=== PATIENT | female | born 1985 | race Caucasian/White ===

== ENCOUNTER 2019-12-07 22:24 | Observation (INO) | payer BC ==
[~2019-12-07] VITALS: Ht 170.2 cm; Wt 99.1 kg
[2019-12-07] MEDS ORDERED: ONDANSETRON HCL INJ 2MG/ML 2ML 2 MG/ML VIAL IV STA (22:30)
[2019-12-07] MEDS ORDERED: MORPHINE SULFATE INJ 4 MG/ML INJ 1ML IV PRN (22:30)
[2019-12-07] MEDS ORDERED: FAMOTIDINE 20 MG/2 ML VIAL IV STA (22:30)
[2019-12-07] MEDS ORDERED: SODIUM CHLORIDE 0.9% 1000ML 1,000 ML IV STA (22:30)
[2019-12-07] MEDS ORDERED: DICYCLOMINE HCL 20 MG/2 ML VIAL IM ONE (22:30)
--- NOTE | 2019-12-07 22:43 | Emergency Department Note ---
History of Present Illnes History of Present Illness History of Present Illness This is a 34 year old female arrives to the ED the right upper quadrant and epigastric abdominal pain. Patient states she is scheduled for lab work and ultrasound tomorrow but could not tolerate/bear the pain any longer.. Onset (how long ago): week(s) Severity: mild Duration (how long): week(s) Timing of current episode: constant, intermittent Progression: waxing and waning Chronicity: new Past Medical/Family History Physician Review I have reviewed the patient's past medical and family history. Any updates have been documented here. Past Medical History Recent Fever: No Clinical Suspicion of Infectio: No New/Unexplained Change in Ment: No Past Medical History: None Past Surgical History: None Social History Smoking Cessation: Never Smoker Counseling Performed: No Alcohol Use: None Any Illegal Drug Use: No TB Exposure/Symptoms: No Physically hurt or threatened: No Family History Family history of heart diseas: No Review of Systems Review of Systems Constitutional: Reports no symptoms EENTM: Reports no symptoms Cardiovascular: Reports no symptoms Respiratory: Reports no symptoms Gastrointestinal: Reports as per HPI, Reports abdominal pain Genitourinary: Reports no symptoms Musculoskeletal: Reports no symptoms Integumentary: Reports no symptoms Neurological: Reports no symptoms Psychological: Reports no symptoms Endocrine: Reports no symptoms Hematological/Lymphatic: Reports no symptoms Physical Exam Related Data Allergies: Coded Allergies: No Known Allergies (Unverified , 12/07/19) Vital signs reviewed: Yes Physical Exam CONSTITUTIONAL Constitutional: Present well-developed, Present well-nourished HENT HENT: Present normocephalic, Present atraumatic, Present oropharynx clear/moist, Present nose normal HENT L/R: Present left ext ear normal, Present right ext ear normal EYES Eyes: Reports PERRL, Reports conjunctivae normal NECK Neck: Present ROM normal PULMONARY Pulmonary: Present effort normal, Present breath sounds normal CARDIOVASCULAR Cardiovascular: Present regular rhythm, Present heart sounds normal, Present capillary refill normal, Present normal rate GASTROINTESTINAL Abdominal: Present soft, Present bowel sounds normal, Present tender GENITOURINARY Genitourinary: Present exam deferred SKIN Skin: Present warm, Present dry MUSCULOSKELETAL Musculoskeletal: Present ROM normal NEUROLOGICAL Neurological: Present alert, Present oriented x 3, Present no gross motor or sensory deficits PSYCHOLOGICAL Psychological: Present mood/affect normal, Present judgement normal Results Laboratory Lab results reviewed: Yes Laboratory comments Laboratory Tests Test 12/07/19 22:37 White Blood Count 10.50 x10e3/uL (4.8-10.8) Red Blood Count 4.52 x10e6/uL (3.6-5.1) Hemoglobin 13.0 g/dL (12.0-16.0) Hematocrit 39.6 % (34.2-44.1) Mean Corpuscular Volume 87.6 fL (81-99) Mean Corpuscular Hemoglobin 28.8 pg (28-32) Mean Corpuscular Hemoglobin Concent 32.8 g/dL (31-35) Red Cell Distribution Width 12.9 % (11.7-14.4) Platelet Count 275 x10e3/uL (140-360) Neutrophils (%) (Auto) 56.6 % (38.7-80.0) Lymphocytes (%) (Auto) 32.2 % (18.0-39.1) Monocytes (%) (Auto) 7.3 % (4.4-11.3) Eosinophils (%) (Auto) 3.2 % (0.0-6.0) Basophils (%) (Auto) 0.4 % (0.0-1.0) Neutrophils # (Auto) 5.9 (2.1-6.9) Lymphocytes # (Auto) 3.4 (1.0-3.2) Monocytes # (Auto) 0.8 (0.2-0.8) Eosinophils # (Auto) 0.3 (0.0-0.4) Basophils # (Auto) 0.0 (0.0-0.1) Absolute Immature Granulocyte (auto 0.03 x10e3/uL (0-0.1) Urine Color Yellow (YELLOW) Urine Clarity Clear (CLEAR) Urine pH 6 (5 - 7) Urine Specific [place] 1.025 (1.010-1.025) Urine Protein Negative (NEGATIVE) Urine Glucose (UA) Negative (NEGATIVE) Urine Ketones Negative (NEGATIVE) Urine Blood Trace (NEGATIVE) Urine Nitrite Negative (NEGATIVE) Urine Bilirubin Negative (NEGATIVE) Urine Urobilinogen 0.2 mg/dL (0.2 - 1) Urine Leukocyte Esterase Small (NEGATIVE) Urine RBC 0-5 /HPF (0-5) Urine WBC 6-10 /HPF (0-5) Urine Epithelial Cells Moderate /LPF (NONE) Urine Bacteria Few /HPF (NONE) Urine Test Negative (NEGATIVE) Sodium Level 140 mmol/L (136-145) Potassium Level 4.0 mmol/L (3.5-5.1) Chloride Level 105 mmol/L (98-107) Carbon Dioxide Level 25 mmol/L (22-29) Anion Gap 14.0 mmol/L (8-16) Blood Urea Nitrogen 10 mg/dL (7-26) Creatinine 0.78 mg/dL (0.57-1.11) Estimat Glomerular Filtration Rate > 60 ML/MIN (60-) BUN/Creatinine Ratio 13 (6-25) Glucose Level 112 mg/dL (74-118) Calcium Level 9.8 mg/dL (8.4-10.2) Total Bilirubin 0.6 mg/dL (0.2-1.2) Aspartate Amino Transf (AST/SGOT) 16 IU/L (5-34) Alanine Aminotransferase (ALT/SGPT) 21 IU/L (0-55) Alkaline Phosphatase 63 IU/L (40-150) Creatine Kinase 92 IU/L (29-168) Creatine Kinase MB 0.80 ng/mL (0-5.0) Troponin I < 0.001 ng/mL (0-0.300) Total Protein 7.7 g/dL (6.5-8.1) Albumin 4.4 g/dL (3.5-5.0) Globulin 3.3 g/dL (2.3-3.5) Albumin/Globulin Ratio 1.3 (0.8-2.0) Lipase 25 U/L (8-78) Urine Opiates Screen Negative (NEGATIVE) Urine Methadone Screen Negative (NEGATIVE) Urine Barbiturates Screen Negative (NEGATIVE) Urine Phencyclidine Screen Negative (NEGATIVE) Urine Amphetamines Screen Negative (NEGATIVE) Urine Methamphetamines Screen Negative (NEGATIVE) Urine Benzodiazepines Screen Negative (NEGATIVE) Urine Cocaine Screen Negative (NEGATIVE) Urine Cannabinoids Screen Negative (NEGATIVE) Imaging Imaging results reviewed: Yes Impressions IMPRESSION: 1. Cholelithiasis, distended gallbladder, and mild wall thickening, concerning for acute cholecystitis in this patient with right upper quadrant pain. 2. Subcentimeter nonobstructive right renal calculus. Signed by: Dr. Cuba Louis MD on 12/07/2019 11:55 PM Assessment & Plan Medical Decision Making MDM 34-year-old female arrives to the ED with epigastric and right upper quadrant abdominal pain. Patient's labwork unremarkable. Patient's CT findings consistent with acute cholecystitis. Patient's pain was well controlled, she was given a dose of IV antibiotics and admitted for further workup and management. Dr. Alexsi was consult. Assessment & Plan Final Impression: (1) Acute cholecystitis Depart Disposition: ADMITTED Medications in the ED Sodium Chloride 1,000 ml @ 0 mls/hr Q0M STAT IV ; Start 12/07/19 at 22:30; Stop 12/07/19 at 22:31 Morphine Sulfate 4 mg ONCE PRN IV SEVERE PAIN (7-10); Start 12/07/19 at 22:30; Stop 12/14/19 at 22:29; Status UNV Ondansetron HCl 4 mg NOW STAT IV ; Start 12/07/19 at 22:30; Stop 12/07/19 at 22:31; Status UNV Famotidine 20 mg NOW STAT IV ; Start 12/07/19 at 22:30; Stop 12/07/19 at 22:31; Status UNV Dicyclomine HCl 20 mg ONCE ONCE IM ; Start 12/07/19 at 22:30; Stop 12/07/19 at 22:31 BENITA ROMAN, Dec 07, 2019 22:42
[2019-12-07 22:54] LABS: BASOPHILS % 0.4 % (0.0-1.0); EOSINOPHILS # (AUTO) 0.3 (0.0-0.4); EOSINOPHILS % 3.2 % (0.0-6.0); HEMATOCRIT 39.6 % (34.2-44.1); LYMPHOCYTES # (AUTO) 3.4 (1.0-3.2); LYMPHOCYTES % 32.2 % (18.0-39.1); MEAN CORPUSCULAR HEMOGLOBIN 28.8 pg (28-32); MEAN CORPUSCULAR HGB CONC 32.8 g/dL (31-35); MEAN CORPUSCULAR VOLUME 87.6 fL (81-99); MONOCYTES # (AUTO) 0.8 (0.2-0.8); MONOCYTES % 7.3 % (4.4-11.3); NEUTROPHILS # (AUTO) 5.9 (2.1-6.9); NEUTROPHILS % 56.6 % (38.7-80.0); PLATELET COUNT 275 x10e3/uL (140-360); RED BLOOD COUNT 4.52 x10e6/uL (3.6-5.1); RED CELL DISTRIBUTION WIDTH 12.9 % (11.7-14.4)
[2019-12-07 22:56] LABS: AMPHETAMINES SCREEN,URINE NEGATIVE (NEGATIVE); BENZODIAZEPINES SCREEN,URINE NEGATIVE (NEGATIVE); BILIRUBIN,URINE NEGATIVE (NEGATIVE); CLARITY,URINE CLEAR (CLEAR); COLOR,URINE YELLOW (YELLOW); KETONES,URINE NEGATIVE (NEGATIVE); LEUKOCYTE ESTERASE ,URINE SMALL (NEGATIVE); NITRITE,URINE NEGATIVE (NEGATIVE); PHENCYCLIDINE SCREEN,URINE NEGATIVE (NEGATIVE); PROTEIN,URINE DIPSTICK NEGATIVE (NEGATIVE); URINE UROBILINOGEN 0.2 mg/dL (0.2 - 1)
[2019-12-07 22:57] LABS: PREGNANCY TEST, URINE NEGATIVE (NEGATIVE)
[2019-12-07 23:02] LABS: BACTERIA,URINE FEW /HPF; EPITHELIAL CELLS,URINE MODERATE /LPF; RBC,URINE 0-5 /HPF (0-5)
[2019-12-07 23:10] LABS: ALANINE AMINOTRANSFERASE 21 IU/L (0-55); ALBUMIN 4.4 g/dL (3.5-5.0); ALBUMIN/GLOBULIN RATIO 1.3 (0.8-2.0); ALKALINE PHOSPHATASE 63 IU/L (40-150); BLOOD UREA NITROGEN 10 mg/dL (7-26); BUN/CREATININE RATIO 13 (6-25); CALCIUM 9.8 mg/dL (8.4-10.2); CARBON DIOXIDE 25 mmol/L (22-29); CHLORIDE 105 mmol/L (98-107); CREATINE KINASE 92 IU/L (29-168); CREATININE, SERUM 0.78 mg/dL (0.57-1.11); EST GLOMERULAR FILTRATION RATE > 60 ML/MIN (60-); GLUCOSE 112 mg/dL (74-118); SODIUM 140 mmol/L (136-145)
[2019-12-07] MEDS ORDERED: SODIUM CHLORIDE 0.9% 50ML 50 ML ONE (23:25)
[2019-12-07] MEDS ORDERED: IOPAMIDOL 370 MG/ML 200 ML INFUS..BTL INJ ONE (23:26)
--- NOTE | 2019-12-07 23:59 | Diagnostic Imaging Report ---
EXAM: CT Abdomen and Pelvis WITH contrast INDICATION: ^Y ^RUQ PAIN ^20191207 ^2330 COMPARISON: None. TECHNIQUE: Abdomen and pelvis were scanned utilizing a multidetector helical scanner from the lung base to the pubic symphysis after administration of IV contrast. Coronal and sagittal reformations were obtained. Dose modulation, iterative reconstruction, and/or weight based adjustment of the mA/kV was utilized to reduce the radiation dose to as low as reasonably achievable. Routine protocol was performed. Scan was performed when during portal venous phase. IV CONTRAST: 100 mL of Isovue-370 ORAL CONTRAST: Water COMPLICATIONS: None RADIATION DOSE: Total DLP: 395.35 mGy*cm Estimated effective dose: (DLP x 0.015 x size factor) mSv CTDIvol has been reviewed. It is below the limits set by the Radiation Protocol Committee (RPC). FINDINGS: LINES and TUBES: None. LOWER THORAX: Unremarkable HEPATOBILIARY: No focal hepatic lesions. No biliary ductal dilation. GALLBLADDER: Distended gallbladder, containing a gallstone in the neck area. Mild wall thickening. SPLEEN: No splenomegaly. PANCREAS: No focal masses or ductal dilatation. ADRENALS: No adrenal nodules KIDNEYS/URETERS: Kidneys enhance symmetrically. No hydronephrosis. No cystic or solid mass lesions. 3 mm right renal superior pole calculus. GI TRACT: No abnormal distention, wall thickening, or evidence of bowel obstruction. Appendix is normal. Hyperdense ingested material within stomach and small bowel. PELVIC ORGANS/BLADDER: Unremarkable. Retroverted uterus. LYMPH NODES: No lymphadenopathy. VESSELS: Unremarkable. PERITONEUM / RETROPERITONEUM: No free air or fluid. BONES: Scattered sclerotic foci, the largest in right femoral head, likely bone islands. SOFT TISSUES: Unremarkable. IMPRESSION: 1. Cholelithiasis, distended gallbladder, and mild wall thickening, concerning for acute cholecystitis in this patient with right upper quadrant pain. 2. Subcentimeter nonobstructive right renal calculus. Signed by: Dr. Cuba Louis MD on 12/07/2019 11:55 PM
[2019-12-08] VITALS (7 sets, daily range): BP systolic 105–134; BP diastolic 60–92
[2019-12-08] MEDS ORDERED: DEXTROSE 5%/0.45% SOD CHL 1,000 ML IV STA (00:01)
[2019-12-08] MEDS ORDERED: CEFTRIAXONE SOD 1 GM/NS 50 ML 50 ML IV ONE (00:15)
--- OUTSIDE RECORDS SUMMARY | 2019-12-08 01:21 | XMS REPORT | Continuity of Care Document ---
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 Allergies, Adverse Reactions, Alerts This patient has no known allergies or adverse reactions. Medications This patient has no known medications. Procedures This patient has no known procedures. Results Test Description Test Time Test Comments Results Result Comments Source CT ABDOMEN/PELVIS W 2019-12-07 23:48:00 [facility] [address] [place] [address] Patient Name: SOFI WHITMAN MR #: [id number] : 1985 Age/Sex: 34/F Req #: [id number] Adm Physician: Ordered by: BENITA ROMAN DO Report #: [id number] Location: ER Room/Bed: Procedure: [id number] CT/CT ABDOMEN/PELVIS W Exam Date: 12/07/19 Exam Time: 2329 REPORT STATUS: Signed EXAM: CT Abdomen and Pelvis WITH contrast INDICATION: Y RUQ PAIN 20191207 COMPARISON: None. TECHNIQUE: Abdomen and pelvis were scanned utilizing a multidetector helical scanner from the lung base to the pubic symphysis after administration of IV contrast. Coronal and sagittal reformations were obtained. Dose modulation, iterative reconstruction, and/or weight based adjustment of the mA/kV was utilized to reduce the radiation dose to as low as reasonably achievable. Routine protocol was performed. Scan was performed when during portal venous phase. IV CONTRAST: 100 mL of Isovue-370 ORAL CONTRAST: Water COMPLICATIONS: None RADIATION DOSE: Total DLP: 395.35 mGy*cm Estimated effective dose: (DLP x 0.015 x size factor) mSv CTDIvol has been reviewed. It is below the limits set by the Radiation Protocol Committee (RPC). FINDINGS: LINES and TUBES: None. LOWER THORAX: Unremarkable HEPATOBILIARY: No focal hepatic lesions. No biliary ductal dilation. GALLBLADDER: Distended gallbladder, containing a gallstone in the neck area. Mild wall thickening. SPLEEN: No splenomegaly. PANCREAS: No focal masses or ductal dilatation. ADRENALS: No adrenal nodules KIDNEYS/URETERS: Kidneys enhance symmetrically. No hydronephrosis. No cystic or solid mass lesions. 3 mm right renal superior pole calculus. GI TRACT: No abnormal distention, wall thickening, or evidence of bowel obstruction. Appendix is normal. Hyperdense ingested material within stomach and small bowel. PELVIC ORGANS/BLADDER: Unremarkable. Retroverted uterus. LYMPH NODES: No lymphadenopathy. VESSELS: Unremarkable. PERITONEUM / RETROPERITONEUM: No free air or fluid. BONES: Scattered sclerotic foci, the largest in right femoral head, likely bone islands. SOFT TISSUES: Unremarkable. IMPRESSION: 1. Cholelithiasis, distended gallbladder, and mild wall thickening, concerning for acute cholecystitis in this patient with right upper quadrant pain. 2. Subcentimeter nonobstructive right renal calculus. Signed by: Dr. Cuba Durham MD on 12/07/2019 11:55 PM Dictated By: BERNIE DURHAM MD 54 Transcribed By: CHASITY on 12/07/19 5962 COPY TO: BENITA ROMAN DO
--- OUTSIDE RECORDS SUMMARY | 2019-12-08 01:25 | XMS REPORT | Continuity of Care Document ---
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 Allergies, Adverse Reactions, Alerts This patient has no known allergies or adverse reactions. Medications This patient has no known medications. Procedures This patient has no known procedures. Results Test Description Test Time Test Comments Results Result Comments Source CT ABDOMEN/PELVIS W 2019-12-07 23:48:00 [facility] [address] [place] [address] Patient Name: SOFI WHITMAN MR #: [id number] : 1985 Age/Sex: 34/F Req #: [id number] Adm Physician: Ordered by: BENITA ROMAN DO Report #: [id number] Location: ER Room/Bed: Procedure: [id number] CT/CT ABDOMEN/PELVIS W Exam Date: 12/07/19 Exam [...] MD 54 Transcribed By: CHASITY on 12/07/19 3004 COPY TO: BENITA ROMAN DO
[2019-12-08] MEDS: MORPHINE SULFATE INJ 4 MG/ML INJ 1ML IV PRN ×4 (02:58→20:30)
[2019-12-08] MEDS: ONDANSETRON HCL INJ 2MG/ML 2ML 2 MG/ML VIAL IV PRN ×3 (02:58→17:23)
--- NOTE | 2019-12-08 04:24 | NUR ---
pt is in bed at this time, pending room assignment, pt is aaox4, no distress noted,vital signs WNL
[2019-12-08] MEDS ORDERED: PRILOSEC OTC20 MG PO (06:29)
--- NOTE | 2019-12-08 06:58 | NUR ---
Report given to oncoming nurse. Patient to be transferred to room after shift change.
--- NOTE | 2019-12-08 07:01 | NUR ---
Report to ZAIDA Diallo
[2019-12-08] MEDS: HYDROMORPHONE 1MG/1ML INJ IV PRN ×2 (08:20→17:23)
--- NOTE | 2019-12-08 09:32 | Consultation ---
DATE OF CONSULTATION: 12/08/2019 CHIEF COMPLAINT: Abdominal pain. HISTORY OF PRESENT ILLNESS: The patient is a 34-year-old female with complaints of recurrent epigastric right upper quadrant abdominal pain radiating to the back with nausea recurring at nighttime with no vomiting or diarrhea. The patient has had four attacks since October 29. No definite fatty food intolerance. PAST MEDICAL HISTORY: Unremarkable. ALLERGIES: NO DRUG ALLERGY. SOCIAL HABITS: No smoking or alcohol abuse. REVIEW OF SYSTEMS: No chest pain, shortness of breath, cough, or fevers. PHYSICAL EXAMINATION: VITAL SIGNS: Stable, afebrile. GENERAL: The patient is awake, alert, in moderate discomfort. HEENT: Sclerae nonicteric. NECK: Supple. LUNGS: Clear. HEART: Regular rate and rhythm. ABDOMEN: Soft with some guarding and tenderness in epigastrium and right upper quadrant without rebound. LABORATORY DATA: White cell count is 10.5, hemoglobin of 13, and creatinine 0.8. Liver function tests within normal limits. CT of the abdomen showed distended gallbladder with mild wall thickening. No mentioning of gallstones. ASSESSMENT: Gallbladder distention on CT related with abdominal pain, could be cholecystitis. PLAN: HIDA scan to confirm cholecystitis before cholecystectomy. Pradip Alexis MD DNL/MODL /[id number]
[2019-12-08] MEDS ORDERED: KETOROLAC TROMETHAMINE 30 MG/ML VIAL IV PRN (12:00)
[2019-12-08] MEDS ORDERED: KETOROLAC TROMETHAMINE 30 MG/ML VIAL IV STA (14:20)
[2019-12-08] MEDS ORDERED: SODIUM CHLORIDE 0.9% 1000ML 1,000 ML ONE (16:36)
[2019-12-08] MEDS: PIPER-TAZ 3.375 GM 50 ML IV SCH (17:26)
--- NOTE | 2019-12-08 18:57 | Diagnostic Imaging Report ---
HIDA Scan with Morphine Challenge Reason for exam: Acute cholecystitis Report: Following the administration of 6.4 of Tc-99m mebrofenin, dynamic images of the abdomen in the anterior projection were obtained through 60 minutes. Morphine sulfate 4 mg was administered via slow IV push and additional images were obtained through 30 minutes. Perfusion to the liver is normal. Extraction of tracer by the liver parenchyma is normal. Tracer appears promptly within the biliary tract. Tracer is seen within the small bowel by 32 minutes. The gallbladder does not fill during the initial 60 minutes of dynamic imaging. Following administration of morphine, the gallbladder also does not fill. Impression: Absence of filling of the gallbladder, even following administration of morphine, is compatible with the diagnosis of acute cystic duct obstruction/acute cholecystitis. Signed by: Dr. Perlita Whitney M.D. on 12/08/2019 6:53 PM
--- NOTE | 2019-12-08 22:20 | NUR ---
HYDROMORPHONE 1 MG IVP ADMINISTERED FOR PAIN LEVEL OF 8 IN THE ABDOMEN.
[2019-12-09] VITALS (11 sets, daily range): BP systolic 100–123; BP diastolic 68–86
[2019-12-09] MEDS: DEXTROSE 5%/0.9% SOD CHL 1,000 ML IV SCH ×2 (00:41→11:50)
[2019-12-09] MEDS: PIPER-TAZ 3.375 GM 50 ML IV SCH ×5 (00:41→23:55)
--- NOTE | 2019-12-09 01:03 | History and Physical ---
CHIEF COMPLAINT: Right upper quadrant abdominal pain. HISTORY OF PRESENT ILLNESS: The patient was seen and evaluated at approximately 1:00 p.m., this afternoon. The patient was in the process of getting a HIDA scan. This is a 34-year-old female, who came in last night with complaints of right upper quadrant abdominal pain, that has been ongoing for the last several days. The patient went to her primary care physician, had some lab work and had an ultrasound scheduled, but due to the pain, came to the ED for further evaluation and management. She denies any fever at home. No recent sickness, cough, or congestion. The patient reports that she had some epigastric abdominal pain as well. She has had four attacks since October 29. The patient was seen and evaluated at bedside on the medical floor. She is currently doing well with no other issues at this time. REVIEW OF SYSTEMS: Pertinent positives: Right upper quadrant abdominal pain, decreased oral intake. The rest of 14-point review of systems have been reviewed with the patient and are negative. ALLERGIES: NO KNOWN DRUG ALLERGIES. HOME MEDICATIONS: Omeprazole. PAST MEDICAL HISTORY: None. PAST SURGICAL HISTORY: None. FAMILY HISTORY: Hypertension and diabetes. SOCIAL HISTORY: No drugs, no alcohol, does not smoke. Good social support. PHYSICAL EXAMINATION: VITAL SIGNS: Temperature was 98, pulse 70, respiratory rate 17, blood pressure 120/85, pulse ox 100% on room air. GENERAL: Not in acute distress. Alert and oriented x3. Cooperative on examination. HEENT: Head normocephalic, atraumatic. Eyes; pupils are pupils are equal, round, and reactive to the light bilaterally. Extraocular movements are intact bilaterally. Throat, no evidence of any erythema or exudate in the posterior pharynx. Has poor dentition. NECK: Supple. Good range of motion. PULMONARY: Clear to auscultation bilaterally. No wheezing, rales, or rhonchi. No crackles appreciated. CARDIOVASCULAR: Positive S1, S2. No murmurs or gallops appreciated. ABDOMEN: She has tender to palpation in the right upper quadrant. Bowel sounds were present. MUSCULOSKELETAL: Strength is 5/5 throughout. SKIN: Intact. Warm to touch. Good cap refill. PSYCHIATRIC: Normal affect and mood. EXTREMITIES: No edema. Good range of motion throughout. LABORATORY FINDINGS: Show white count 10.5, hemoglobin 13, hematocrit 39.6, platelets of 275. Chemistry; sodium 140, potassium 4, chloride 105, bicarb 25, anion gap of 14, BUN is 10 and creatinine is 0.78, glucose is 112, calcium is 9.8, total bilirubin was 0.6, AST 16, ALT 21, alkaline phosphatase 63. CK 92. Troponins were negative. Total protein 7.7, albumin 4.4, lipase was 25. Urinalysis, 6-10 WBCs with small leukocyte esterase, negative for nitrite. Urine drug screen was negative. Serology; coronavirus was pending. IMAGING STUDIES: CT abdomen and pelvis shows cholelithiasis, distended gallbladder with mild wall thickening concerning for acute cholecystitis in this patient with right upper quadrant pain. Subcentimeter nonobstructing right renal calculus. HIDA scan performed shows absence of filling of the gallbladder even following administration of morphine is compatible with diagnosis acute cystic duct obstruction, acute cholecystitis. IMPRESSION: 1. Abdominal pain concerning for acute cholecystitis. 2. Nausea/vomiting. 3. Dehydration. PLAN: At this time, HIDA scan noted to be acute cholecystitis, which was ordered by General Surgery. General surgery has been consulted. IV Toradol and IV pain medication with morphine p.r.n. she is currently n.p.o. We will continue with IV fluids for now. Continue with IV antibiotics and pain control. SCDs for DVT prophylaxis. Likely will need surgery tomorrow. Plan of care discussed with nursing staff. MD ELSA Jennings/JADYN /[id number]
[2019-12-09] MEDS: MORPHINE SULFATE INJ 4 MG/ML INJ 1ML IV PRN ×3 (01:40→19:08)
[2019-12-09 06:18] LABS: BASOPHILS % 0.2 % (0.0-1.0); EOSINOPHILS # (AUTO) 0.1 (0.0-0.4); EOSINOPHILS % 0.7 % (0.0-6.0); HEMATOCRIT 34.6 % (34.2-44.1); LYMPHOCYTES # (AUTO) 1.2 (1.0-3.2); LYMPHOCYTES % 8.9 % (18.0-39.1); MEAN CORPUSCULAR HEMOGLOBIN 31.9 pg (28-32); MEAN CORPUSCULAR HGB CONC 34.7 g/dL (31-35); MONOCYTES # (AUTO) 1.7 (0.2-0.8); NEUTROPHILS % 76.9 % (38.7-80.0); PLATELET COUNT 181 x10e3/uL (140-360); RED BLOOD COUNT 3.76 x10e6/uL (3.6-5.1); RED CELL DISTRIBUTION WIDTH 13.7 % (11.7-14.4)
[2019-12-09 06:33] LABS: ALANINE AMINOTRANSFERASE 71 IU/L (0-55); ALBUMIN 3.5 g/dL (3.5-5.0); ALBUMIN/GLOBULIN RATIO 1.2 (0.8-2.0); ALKALINE PHOSPHATASE 64 IU/L (40-150); ANION GAP 11.8 mmol/L (8-16); BLOOD UREA NITROGEN < 5 mg/dL (7-26); CALCIUM 8.3 mg/dL (8.4-10.2); CARBON DIOXIDE 25 mmol/L (22-29); CHLORIDE 104 mmol/L (98-107); CREATININE, SERUM 0.65 mg/dL (0.57-1.11); EST GLOMERULAR FILTRATION RATE > 60 ML/MIN (60-); GLUCOSE 133 mg/dL (74-118); POTASSIUM 3.8 mmol/L (3.5-5.1); SODIUM 137 mmol/L (136-145)
[2019-12-09 06:35] LABS: BUN/CREATININE RATIO 8 (6-25)
--- NOTE | 2019-12-09 08:00 | NUR ---
at bedside. OR taking her down for procedure
[2019-12-09] MEDS ORDERED: BUPIVACAINE HCL 0.5% INJ 30 ML VIAL INJ ONE (08:01)
[2019-12-09] MEDS ORDERED: ACETAMINOPHEN 1000 MG/100 ML 100 ML IV ONE (09:07)
[2019-12-09] MEDS ORDERED: KETOROLAC TROMETHAMINE 30 MG/ML VIAL ONE (10:05)
--- NOTE | 2019-12-09 10:38 | NUR ---
Patient villela from OR. In stable condition. Awake and alert and lorin discomfort. IV fluids infusing, refused PO intake except ice chips at this time
--- NOTE | 2019-12-09 11:00 | NUR ---
ABD soft and 4 trochanter sites with glue intact and no bleeding. Active bowel sounds. Pt awake and alert and pleasant. No complaints at this time
--- NOTE | 2019-12-09 12:57 | NUR ---
Taught patient about post surgical diet and precautions, pain management, splinting cough and deep breathing/pulmonary toilet, pain management, post op course, dietary modifications, and post surgical hopital stay length.
--- NOTE | 2019-12-09 19:08 | NUR ---
Patient visited in room during nursing rounds. Patient alert and oriented x3. Ambulatory in room prn. S/P Lap Cholecystectomy today with 4 trocar sites sealed with derma barclay. Patient has intermittent aching pain to surgical sites on abdomen but otherwise patient feels better. Call [place] within reach. Will monitor pt closely.
[2019-12-09] MEDS: ONDANSETRON HCL INJ 2MG/ML 2ML 2 MG/ML VIAL IV PRN (19:25)
--- NOTE | 2019-12-09 19:42 | NUR ---
Patient requested to advance diet and felt she was ready. Diet order was changed from clear liquid to full liquid diet.
[2019-12-10] VITALS: BP 106/68
--- NOTE | 2019-12-10 00:47 | Progress Note ---
DATE: 12/09/2019 Medicine Progress Note SUBJECTIVE: The patient underwent laparoscopic cholecystectomy. She is stating she is feeling much better. Pain is well controlled. PHYSICAL EXAMINATION: VITAL SIGNS: Temperature is 98, pulse is 98, respiratory rate 16, blood pressure 112/69, pulse ox 99% on room air. GENERAL: Not in acute distress. Alert and oriented x3. Cooperative on examination. PULMONARY: Clear to auscultation bilaterally. No wheezing, rales, or rhonchi. No crackles appreciated. CARDIOVASCULAR: Positive S1, S2. No murmurs, rubs, or gallops appreciated. ABDOMEN: Soft, nondistended, and nontender to palpation. Bowel sounds present. MUSCULOSKELETAL: Strength 5/5 throughout. No evidence of any muscle deficits on examination. SKIN: Intact. Warm to touch. Good cap refill. PSYCHIATRIC: Normal affect and mood. EXTREMITIES: No edema. Good range of motion throughout. LABORATORY DATA: Labs show white count was 12. The rest of the CBCs are stable. Chemistries reviewed, stable. IMAGING STUDIES: Nothing new. IMPRESSION: 1. Acute cholecystitis, status post laparoscopic cholecystectomy. 2. Nausea/vomiting-resolved. 3. Dehydration-resolved. PLAN: At this time, the patient underwent status post laparoscopic cholecystectomy. She is on a regular diet. She is doing very well. Continue with pain control. Potential discharge tomorrow. Get a.m. labs. MD ELSA Jennings/SHARYNL /[id number]
[2019-12-10] MEDS: DEXTROSE 5%/0.9% SOD CHL 1,000 ML IV SCH (01:40)
[2019-12-10] MEDS: ONDANSETRON HCL INJ 2MG/ML 2ML 2 MG/ML VIAL IV PRN (03:40)
[2019-12-10] MEDS: MORPHINE SULFATE INJ 4 MG/ML INJ 1ML IV PRN (03:40)
[2019-12-10 04:00] VITALS: BP 106/60
[2019-12-10] MEDS: PIPER-TAZ 3.375 GM 50 ML IV SCH ×2 (06:16→12:00)
--- NOTE | 2019-12-10 07:00 | NUR ---
BEDSIDE SHIFT REPORT RECEIVED FROM THE PREMIX OPERATOR CONCENTRATE RN. EDUCATED PT ABOUT FALL PRECAUTIONS. PT VERBALIZED UNDERSTANDING. CALL LIGHT WITH IN EASY REACH. BED IS LOW AND LOCKED. SIDE RAILS X2. ALL SAFETY MEASURES IN PLACE. PT DENIES NEEDS AT THIS TIME.
[2019-12-10 08:00] VITALS: BP 106/66
[2019-12-10 08:50] VITALS: BP 106/66
[2019-12-10 10:36] LABS: BASOPHILS % 0.2 % (0.0-1.0); EOSINOPHILS # (AUTO) 0.1 (0.0-0.4); EOSINOPHILS % 1.6 % (0.0-6.0); HEMATOCRIT 31.2 % (34.2-44.1); HEMOGLOBIN 10.2 g/dL (12.0-16.0); LYMPHOCYTES # (AUTO) 2.1 (1.0-3.2); LYMPHOCYTES % 25.8 % (18.0-39.1); MEAN CORPUSCULAR HEMOGLOBIN 29.1 pg (28-32); MEAN CORPUSCULAR HGB CONC 32.7 g/dL (31-35); MEAN CORPUSCULAR VOLUME 88.9 fL (81-99); MONOCYTES % 12.1 % (4.4-11.3); NEUTROPHILS # (AUTO) 4.9 (2.1-6.9); NEUTROPHILS % 60.1 % (38.7-80.0); PLATELET COUNT 184 x10e3/uL (140-360); RED BLOOD COUNT 3.51 x10e6/uL (3.6-5.1); RED CELL DISTRIBUTION WIDTH 13.3 % (11.7-14.4)
--- NOTE | 2019-12-10 10:43 | NUR ---
PAGED DR. MEDINA REGARDING PT D/C. WAITING FOR THE RESPONSE FROM THE
[2019-12-10 10:54] LABS: ANION GAP 8.5 mmol/L (8-16); BLOOD UREA NITROGEN 6 mg/dL (7-26); BUN/CREATININE RATIO 10 (6-25); CARBON DIOXIDE 26 mmol/L (22-29); CHLORIDE 111 mmol/L (98-107); EST GLOMERULAR FILTRATION RATE > 60 ML/MIN (60-); GLUCOSE 100 mg/dL (74-118); POTASSIUM 3.5 mmol/L (3.5-5.1); SODIUM 142 mmol/L (136-145)
[2019-12-10 12:00] VITALS: BP 96/57
[2019-12-10] MEDS ORDERED: ACETAMINOPHEN 325 MG TAB PO PRN (12:30)
[2019-12-10] MEDS ORDERED: CEFDINIR300 MG PO (12:51)
[2019-12-10] MEDS ORDERED: FLAGYL500 MG PO (12:52)
[2019-12-10] MEDS ORDERED: TYLENOL # 31 EA (12:53)
--- NOTE | 2019-12-10 13:00 | NUR ---
J LUIS TO D/C PT PER DR. MEDINA AND DR. HERMOSILLO.
--- NOTE | 2019-12-10 13:30 | NUR ---
PT DISCHARGED HOME SAFELY WITH FAMILY MEMBER. PT ESCORTED VIA WHEEL CHAIR TO THE PRIVATE AUTO AT THE FRONT ENTRANCE. IV REMOVED. TIP INTACT. DRESSING APPLIED. RX GIVEN. DISCHARGE INSTRUCTIONS GIVEN AND PT VERBALIZED UNDERSTANDING. PT DENIED FURTHER NEEDS.
--- NOTE | 2019-12-10 23:08 | Discharge Summary ---
FINAL DISCHARGE DIAGNOSES: 1. Acute cholecystitis, status post laparoscopic cholecystectomy. 2. Nausea and vomiting-resolved. 3. Dehydration-resolved. CONSULTANTS: General Surgery. PHYSICAL EXAMINATION: VITAL SIGNS: Temperature is 98.2, pulse 76, respiratory rate is 18, blood pressure is 106/66, pulse ox 99% on room air. LABORATORY FINDINGS: Show white count 8.1, hemoglobin 10.2, hematocrit is 31, platelets of 184. Chemistry; sodium 142, potassium 3.5, chloride 111, bicarb 26, anion gap is 8.5, calcium is 8. LFTs shows total bilirubin 1.2, AST 36, ALT was 71, alkaline phosphatase 64. Troponins were negative. Lipase was 25. Urinalysis was negative. Toxicology screen was negative. Serologies not detected. IMAGING STUDIES: CT abdomen and pelvis showed cholelithiasis, distended gallbladder, mild wall thickening concerning for acute cholecystitis in the right upper quadrant. Subcentimeter nonobstructing right renal calculus. HIDA scan showed an absence of filling of the gallbladder even following administration morphine, it is compatible with diagnosis of acute cystic duct obstruction, acute cholecystitis. HOSPITAL COURSE: This is a 34-year-old female, who came into the ED with complaints of right upper quadrant abdominal pain ongoing for the last several days prior to arrival to the hospital. General Surgery was consulted. CT imaging of the abdomen was consistent with acute cholecystitis. HIDA scan confirmed acute cholecystitis. The patient underwent status post laparoscopic cholecystectomy on 12/09/2019. The patient did well postoperatively with no complaints. She was on a clear liquid diet, advanced to regular. She was cleared for discharge by General Surgery. The patient maintained on IV antibiotics and discharged on oral antibiotics as well as pain control. On the day of discharge, vital signs were stable, labs reviewed and stable. The patient is seen and evaluated, and examined thoroughly on the day of discharge. No other complaints. The patient verbalized understanding and agreed with plan of care to follow up accordingly as an outpatient primary care physician in 1 week and General Surgery in 10 days time. MEDICATIONS: See med reconciliation form. DISPOSITION: Home. CONDITION: Stable. DIET: Heart healthy. In the event of any worsening symptoms, the patient was advised come back to the ED for further evaluation. Discharge summary took greater than 35 minutes. MD ELSA Jennings/JADYN /[id number]
--- NOTE | 2019-12-13 19:10 | Operative Report ---
DATE OF PROCEDURE: 12/09/2019 SURGEON: Pradip Alexis MD PREOPERATIVE DIAGNOSIS: Cholecystitis. POSTOPERATIVE DIAGNOSIS: Cholecystitis. OPERATIVE PROCEDURE: Laparoscopic cholecystectomy. ANESTHESIA: General. INDICATION FOR SURGERY: The patient is a 34-year-old female with epigastric abdominal pain with CT scan shows stone near the neck of the gallbladder. HIDA scan confirmed non-visualization of the gallbladder at 2 hours. The patient consented for laparoscopic cholecystectomy. Attendant risks discussed. PROCEDURE FINDINGS: Acute cholecystitis. DESCRIPTION OF PROCEDURE: The patient was brought to the OR intubated. The abdomen was prepped and draped in sterile fashion. An infraumbilical incision was made. An 11 mm port inserted, insufflation then began. Under direct vision, other ports I placed at the epigastric and right upper quadrant. Gallbladder was acutely inflamed and distended. Fundus retracted in cephalad direction. Next, the gallbladder retracted laterally with blunt and sharp dissection. We proceeded to isolate cystic artery, triply clipped and divided. The cystic duct was isolated and junction of common bile duct was noted before triple clipping the cystic duct, 5 mm away from the junction and divided cystic duct between clips. The gallbladder detached from the liver with cautery and taken out through umbilical port site. Operative field was irrigated. Hemostasis achieved. Ports removed under direct vision. Fascia was closed with 0 Vicryl. Skin was closed with subcuticular stitch. The patient was extubated and transported to recovery room. BLOOD LOSS: 10 mL. Pradip Alexis MD DNL/MODL /[id number]
== END 2019-12-10 13:45 | disposition home or self-care (01) ==
LOC: ER 22:30 → ERHOLD 12-08 01:22 → MED/SURG3 12-08 07:17
PROVIDERS: ADMIT Internal Medicine; ATTEND Internal Medicine
DX: K80.00 Calculus of gallbladder with acute cholecystitis without obstruction (principal); E86.0 Dehydration; Z11.59 Encounter for screening for other viral diseases
CPT/HCPCS: 36415 ×3; 47562; 74177; 78227; 80048; 80053 ×2; 80307; 81001; 81025; 82550; 82553; 83690; 84484; 85025 ×3; 88304; 99283; A9537; G0378 ×3; J0131; J0500; J0696; J1170; J1885 ×2; J2270 ×4; J2405 ×4; J2543 ×3; J7030 ×2; J7042; Q9967; U0002